=== PATIENT | male | born 2000 | race Two or more races ===

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

== ENCOUNTER 2023-04-12 03:34 | Emergency (ER) | payer MEDICAID, OTHER ==
[~2023-04-12] VITALS: Ht 177.8 cm; Wt 95.0 kg
[2023-04-12 03:36] VITALS: BP 153/84; PULSE 83; RESP 20; TEMP 98.4; O2SAT 96
[2023-04-12] MEDS ORDERED: ALBU6.7H15 INH (06:21)
== END 2023-04-12 06:35 | disposition home or self-care (01) ==
LOC: ER 05:31
DX: J45.909 Unspecified asthma, uncomplicated (principal)
CPT/HCPCS: 71045; 99283